=== PATIENT | female | born 1960 | race African-American/Black ===

== ENCOUNTER 2016-04-27 21:54 | Emergency (ER) | payer MEDICAID, OTHER ==
[~2016-04-27] VITALS: Ht 157.5 cm; Wt 112.0 kg
[~2016-04-27 21:54] MED LIST: AMIT10 PO; BACL20TA PO; FURO20TA PO; HYDR-3534 PO; PROT40TA PO; XANA0.5T PO
[2016-04-27 21:55] VITALS: BP 177/87; PULSE 62; RESP 16; TEMP 97.4; O2SAT 99
[2016-04-27] MEDS ORDERED: PROT40TA PO (23:52)
[2016-04-27 23:53] VITALS: BP 154/70; PULSE 65; RESP 16; O2SAT 100
--- NOTE | 2016-04-28 00:07 | PD ---
HPI Chief Complaint: Dizziness Time Seen by Provider: 23:53 Travel History International Travel<30 days: No Contact w/Intl Traveler<30days: No Traveled to known affect area: No History of Present Illness HPI 56 years old female complains of lightheadedness, dizziness, and shortness of breath. Patient states that she hasn't given with her on the phone this evening. Patient started feeling dizzy lightheadedness short of breath and blood pressure was elevated. Patient states that she has history of vertigo. Patient denies any visual change. Patient denies any neck pain. Patient denies any chest pain. Patient denies any coughing congestion. Patient denies abdominal pain. Patient states that she had nausea with the dizziness. Patient denies any focal weakness or numbness of extremity. Patient denies any history hypertension. Patient has history of anxiety, GERD, bone cancer to left leg 47 years ago status post surgery, ulcer colitis, uterine fibroids and migraine. PFSH Past Medical History Anxiety: Yes Heart Rhythm Problems: No Cancer: Yes (BONE CANCER LEFT LEG 47 YEARS AGO) Cardiac Catheterization: No Cardiovascular Problems: No High Cholesterol: No Congestive Heart Failure: No Diabetes: No Diminished Hearing: No Endocrine: No Gastrointestinal Disorders: Yes (ULCERATIVE COLITIS ; GASTRIC ULCER) GERD: Yes Genitourinary: Yes (FREQ URINATION) Hepatitis: No Hiatal Hernia: No Immune Disorder: No Medical other: Yes (VERTIGO; MIGRANES) Musculoskeletal: No Neurologic: No Psychiatric: No Reproductive: Yes (FIBROIDS) Respiratory: No Migraines: Yes Thyroid Disease: No Menopausal: Yes : 1 Para: 1 Past Surgical History Body Medical Devices: NONE Section: Yes (X1) Coronary Artery Bypass Graft: No Gynecologic Surgery: Yes ( X 1, HYSTERECTOMY) Hysterectomy: Yes (TOTAL) Pacemaker: No Other Surgery: Yes Social History Alcohol Use: No Tobacco Use: No Substance Use: No Allergies-Medications (Allergen,Severity, Reaction): Coded Allergies: Sulfa (Verified Allergy, Mild, ABD PAIN AND DIARRHEA, 04/27/16) Reported Meds & Prescriptions Reported Meds & Active Scripts Active Reported Protonix (Pantoprazole Sodium) 40 Mg Tab 40 Mg PO DAILY Review of Systems General / Constitutional: No: Fever Eyes: No: Visual changes HENT: Positive: Lightheadedness, No: Headaches Cardiovascular: No: Chest Pain or Discomfort Respiratory: Positive: Shortness of Breath Gastrointestinal: Positive: Nausea, No: Abdominal Pain Genitourinary: No: Dysuria Musculoskeletal: No: Pain Skin: No Rash Neurologic: No: Weakness Psychiatric: No: Depression Endocrine: No: Polydipsia Hematologic/Lymphatic: No: Easy Bruising Physical Exam Narrative GENERAL: Well-nourished, well-developed patient. SKIN: Warm and dry. HEAD: Normocephalic. EYES: No scleral icterus. No injection or drainage. NECK: Supple, trachea midline. No JVD or lymphadenopathy. CARDIOVASCULAR: Regular rate and rhythm without murmurs, gallops, or rubs. RESPIRATORY: Breath sounds equal bilaterally. No accessory muscle use. GASTROINTESTINAL: Abdomen soft, non-tender, nondistended. MUSCULOSKELETAL: No cyanosis, or edema. BACK: Nontender without obvious deformity. No CVA tenderness. Neurologic exam normal. Data Data Last Documented VS Vital Signs Date Time Temp Pulse Resp B/P Pulse Ox O2 Delivery O2 Flow Rate FiO2 04/27/16 23:54 64 04/27/16 23:53 16 154/70 100 Room Air 04/27/16 21:55 97.4 Orders Meclizine (Antivert) (04/28/16 00:15) Ondansetron Inj (Zofran Inj) (04/28/16 00:15) Complete Blood Count With Diff (04/28/16 00:02) Basic Metabolic Panel (Bmp) (04/28/16 00:02) Urinalysis - C+S If Indicated (04/28/16 00:02) Iv Access Insert/Monitor (04/28/16 00:02) Ecg Monitoring (04/28/16 00:02) Oximetry (04/28/16 00:02) Chest, Single Ap (04/28/16 00:05) Labs Laboratory Tests Test 04/28/16 04/28/16 00:20 01:12 White Blood Count 8.5 TH/MM3 Red Blood Count 3.71 MIL/MM3 Hemoglobin 10.9 GM/DL Hematocrit 32.7 % Mean Corpuscular Volume 88.2 FL Mean Corpuscular Hemoglobin 29.5 PG Mean Corpuscular Hemoglobin 33.4 % Concent Red Cell Distribution Width 14.5 % Platelet Count 267 TH/MM3 Mean Platelet Volume 8.2 FL Neutrophils (%) (Auto) 37.7 % Lymphocytes (%) (Auto) 52.8 % Monocytes (%) (Auto) 7.0 % Eosinophils (%) (Auto) 1.5 % Basophils (%) (Auto) 1.0 % Neutrophils # (Auto) 3.2 TH/MM3 Lymphocytes # (Auto) 4.5 TH/MM3 Monocytes # (Auto) 0.6 TH/MM3 Eosinophils # (Auto) 0.1 TH/MM3 Basophils # (Auto) 0.1 TH/MM3 CBC Comment DIFF FINAL Differential Comment Sodium Level 141 MEQ/L Potassium Level 3.5 MEQ/L Chloride Level 106 MEQ/L Carbon Dioxide Level 28.6 MEQ/L Anion Gap 6 MEQ/L Blood Urea Nitrogen 6 MG/DL Creatinine 0.70 MG/DL Estimat Glomerular Filtration 105 ML/MIN Rate Random Glucose 92 MG/DL Calcium Level 9.1 MG/DL Urine Color LIGHT-YELLOW Urine Turbidity CLEAR Urine pH 6.0 Urine Specific [place] 1.006 Urine Protein NEG mg/dL Urine Glucose (UA) NEG mg/dL Urine Ketones NEG mg/dL Urine Occult Blood NEG Urine Nitrite NEG Urine Bilirubin NEG Urine Urobilinogen LESS THAN 2.0 MG/DL Urine Leukocyte Esterase SMALL Urine RBC 1 /hpf Urine WBC LESS THAN 1 /hpf Urine Squamous Epithelial <1 /hpf Cells Urine Bacteria RARE /hpf Microscopic Urinalysis Comment CULT NOT INDICATED MDM Medical Decision Making Medical Screen Exam Complete: Yes Emergency Medical Condition: Yes Interpretation(s) 1:51 AM. Last Impressions Chest X-Ray 04/28/16 0005 Signed Impressions: Service Date/Time: Thursday, April 28, 2016 00:45 - CONCLUSION: Normal examination. Thierry Calloway Jr., MD 1:51 AM. CBC with hemoglobin 10.9 hematocrit 32.7. BMP within normal limit. UA negative. Differential Diagnosis Differential diagnosis including acute vertigo, new-onset hypertension, hypertensive emergency, hypertensive crisis, electrolyte abnormality. Narrative Course 56 years old female with dizziness, lightheadedness, shortness of breath and transient elevated blood pressure. History of vertigo. Meclizine 25 mg by mouth given. Zofran 4 mg IV given. Diagnosis Primary Impression: Acute onset of severe vertigo Patient Instructions: General Instructions Additional Instructions: Take medications as needed. Follow-up with personal physician. Return if worse. Med/Other Pt SpecificInfo: Prescription(s) given Scripts Ondansetron Odt (Zofran Odt)4 Mg Tab4 Mg SL Q6HR PRN (Nausea/Vomiting) #10 TAB Ref 0 Prov:Zachary Alejandro MD 04/28/16 Meclizine 25 Mg Tab25 Mg PO TID PRN (VERTIGO) #30 TAB Ref 0 Prov:Zachary Alejandro MD 04/28/16 Disposition: 01 DISCHARGE HOME Condition: Stable Zachary Alejandro MD Apr 28, 2016 00:07
[2016-04-28] MEDS ORDERED: MECLIZINE HCL 25 MG TAB PO ONE (00:15)
[2016-04-28] MEDS ORDERED: ONDANSETRON HCL 4 MG/2 ML VIAL IV PUSH ONE (00:15)
[2016-04-28 00:37] LABS: AUTOMATED NEUTROPHIL # 3.2 TH/MM3 (1.8-7.7); BASOPHIL # 0.1 TH/MM3 (0-0.2); EOSINOPHIL # 0.1 TH/MM3 (0-0.4); EOSINOPHIL % 1.5 % (0.0-4.0); HEMATOCRIT 32.7 % (35.0-46.0); HEMO FLAGS DIFF FINAL; LYMPH % 52.8 % (9.0-44.0); LYMPHOCYTE # 4.5 TH/MM3 (1.0-4.8); MEAN CELL VOLUME 88.2 FL (80.0-100.0); MEAN CORPUSCULAR HEMOGLOBIN 29.5 PG (27.0-34.0); MEAN CORPUSCULAR HGB CONC 33.4 % (32.0-36.0); NEUT % 37.7 % (16.0-70.0); PLATELET COUNT 267 TH/MM3 (150-450); RED BLOOD COUNT 3.71 MIL/MM3 (4.00-5.30); RED CELL DISTRIBUTION WIDTH 14.5 % (11.6-17.2); WHITE BLOOD COUNT 8.5 TH/MM3 (4.0-11.0)
[2016-04-28 01:01] LABS: BICARBONATE 28.6 MEQ/L (21.0-32.0); POTASSIUM 3.5 MEQ/L (3.5-5.1)
--- NOTE | 2016-04-28 01:12 | RADRPT ---
EXAM DATE/TIME: 04/28/2016 00:45 [facility] COMPARISON: CHEST SINGLE AP, May 31, 2015, 13:08. INDICATIONS : Shortness of breath and chest pain. MEDICAL HISTORY : None. SURGICAL HISTORY : None. ENCOUNTER: Initial ACUITY: 1 day PAIN SCORE: 2/10 LOCATION: chest FINDINGS: A single view of the chest demonstrates the lungs to be symmetrically aerated without evidence of mas s, infiltrate or effusion. The cardiomediastinal contours are unremarkable. Osseous structures are intact. CONCLUSION: Normal examination. Thierry Calloway Jr., MD on April 28, 2016 at 1:11 Board Certified Radiologist. This report was verified electronically.
[2016-04-28 01:34] LABS: BACTERIA, URINE RARE /hpf; BLOOD, URINE NEG (NEG); COMMENT (UR) CULT NOT INDICATED; CULTURE IF INDICATED CULT NOT INDICATED; GLUCOSE,URINE NEG (NEG); KETONE, URINE NEG (NEG); NITRITE,URINE NEG (NEG); SQUAMOUS EPITHELIAL CELL URINE <1 /hpf (0-5); URINE COLOR LIGHT-YELLOW (YELLW/STRAW)
[2016-04-28] MEDS ORDERED: ZOFR4TAB3 SL (01:57)
[2016-04-28] MEDS ORDERED: MECL-62 PO (01:57)
--- NOTE | 2016-04-29 11:06 | EKG ---
Date Performed: 04/27/2016 Time Performed: 23:55:32 PTAGE: 56 years EKG: SINUS BRADYCARDIA LOW QRS VOLTAGE IN PRECORDIAL LEADS BORDERLINE ECG INTERPRETATION BASED O N A DEFAULT AGE OF 40 YEARS NO PREVIOUS TRACING DOCTOR: Arnulfo Yap Interpretating Date/Time 04/29/2016 11:03:36
== END 2016-04-28 03:25 | disposition home or self-care (01) ==
LOC: NEPE 21:54
DX: R42 Dizziness and giddiness (principal); R06.02 Shortness of breath
CPT/HCPCS: 71010; 80048; 81001; 85025; 93005; 96374; 99285; J2405

== ENCOUNTER 2016-06-22 13:27 | Emergency (ER) | payer OTHER ==
[~2016-06-22] VITALS: Ht 157.5 cm; Wt 100.0 kg
[~2016-06-22 13:27] MED LIST changes: -AMIT10 PO; -BACL20TA PO; -FURO20TA PO; -HYDR-3534 PO; +MECL-62 PO; -XANA0.5T PO; +ZOFR4TAB3 SL
[2016-06-22 13:30] VITALS: BP 183/90; PULSE 89; RESP 18; TEMP 98.4; O2SAT 98
--- NOTE | 2016-06-22 13:35 | PD ---
Physical Exam Time Seen by Provider: 13:33 Narrative 56yo F sent by MD for elevated BP w/ Chest pain. Given a medication under her tongue at the office. Slight chest pain now. Also c/o of possible blood clot to R leg because its swollen and painful. Reports SOB. Patient seen in triage. Awaiting bed placement. VS reviewed. Data Data Last Documented VS Vital Signs Date Time Temp Pulse Resp B/P Pulse Ox O2 Delivery O2 Flow Rate FiO2 06/22/16 13:30 98.4 89 18 183/90 98 MDM Supervised Visit with MANUEL: Gemma Perez June 22, 2016 13:35
--- NOTE | 2016-06-22 14:09 | RADRPT ---
EXAM DATE/TIME: 06/22/2016 13:58 [facility] COMPARISON: CHEST SINGLE AP, April 28, 2016, 0:45. INDICATIONS : Wan blood pressure. MEDICAL HISTORY : Hypertension. Carcinoma, bone. SURGICAL HISTORY : Hysterectomy. section. ENCOUNTER: Initial ACUITY: 2 days PAIN SCORE: 2/10 LOCATION: Bilateral chest FINDINGS: PA and lateral views of the chest demonstrate the lungs to be symmetrically aerated without evidence of mass, infiltrate or effusion. The cardiomediastinal contours are unremarkable. Osseous structure s are intact. CONCLUSION: Normal examination. Melquiades Renee MD on June 22, 2016 at 14:07 Board Certified Radiologist. This report was verified electronically.
[2016-06-22 14:32] LABS: AUTOMATED NEUTROPHIL # 4.2 TH/MM3 (1.8-7.7); BASOPHIL # 0.1 TH/MM3 (0-0.2); BASOPHIL % 0.6 % (0.0-2.0); EOSINOPHIL # 0.1 TH/MM3 (0-0.4); EOSINOPHIL % 1.4 % (0.0-4.0); HEMATOCRIT 35.2 % (35.0-46.0); HEMO FLAGS DIFF FINAL; LYMPH % 39.6 % (9.0-44.0); LYMPHOCYTE # 3.2 TH/MM3 (1.0-4.8); MEAN CELL VOLUME 87.9 FL (80.0-100.0); MEAN CORPUSCULAR HEMOGLOBIN 29.5 PG (27.0-34.0); MEAN CORPUSCULAR HGB CONC 33.6 % (32.0-36.0); MONO % 7.1 % (0.0-8.0); NEUT % 51.3 % (16.0-70.0); PLATELET COUNT 293 TH/MM3 (150-450); RED CELL DISTRIBUTION WIDTH 13.8 % (11.6-17.2); WHITE BLOOD COUNT 8.2 TH/MM3 (4.0-11.0)
[2016-06-22 14:47] VITALS: BP 132/61; PULSE 87; RESP 18; O2SAT 98
[2016-06-22 14:56] LABS: ANION GAP 7 MEQ/L (5-15); BICARBONATE 28.5 MEQ/L (21.0-32.0); BLOOD UREA NITROGEN 10 MG/DL (7-18); CHLORIDE 107 MEQ/L (98-107); GLOMERULAR FILTRATION RATE 103 ML/MIN (>89); POTASSIUM 3.5 MEQ/L (3.5-5.1); SODIUM (NA) 142 MEQ/L (136-145)
[2016-06-22 15:00] LABS: CREATINE KINASE 383 U/L (26-192)
--- NOTE | 2016-06-22 15:07 | PD ---
HPI Chief Complaint: Cardiac Complaint Time Seen by Provider: 14:30 Travel History International Travel<30 days: No Contact w/Intl Traveler<30days: No Traveled to known affect area: No History of Present Illness HPI The patient was seen and examined in the presence of the nurse. This patient was sent here by the primary physician office to rule out DVT in her right leg. She says that she's had swelling in her right leg for about a month and does complain of some discomfort in it. No injury. Denies fever or prior history of DVT. She has history of left-sided BKA. She had a bit of chest pain yesterday in the sternal region. This morning had some as well but much improved. Symptoms severity is moderate. No alleviating factors. Duration of chest pain is 2 days and duration of right leg swelling one month PFSH Past Medical History Anxiety: Yes Heart Rhythm Problems: No Cancer: Yes (BONE CANCER LEFT LEG age 6) Cardiac Catheterization: No Cardiovascular Problems: No High Cholesterol: No Congestive Heart Failure: No Diabetes: No Diminished Hearing: No Endocrine: No Gastrointestinal Disorders: Yes (ULCERATIVE COLITIS ; GASTRIC ULCER) GERD: Yes Genitourinary: Yes (FREQ URINATION) Hepatitis: No Hiatal Hernia: No Immune Disorder: No Medical other: Yes (VERTIGO; MIGRANES) Musculoskeletal: No Neurologic: No Psychiatric: No Reproductive: Yes (FIBROIDS) Respiratory: No Migraines: Yes Thyroid Disease: No Tetanus Vaccination: < 5 Years Influenza Vaccination: No Menopausal: Yes : 1 Para: 1 Miscarriage: 0 : 0 Past Surgical History Body Medical Devices: NONE Section: Yes (X1) Coronary Artery Bypass Graft: No Gynecologic Surgery: Yes ( X 1, HYSTERECTOMY) Hysterectomy: Yes (TOTAL) Pacemaker: No Other Surgery: Yes Family History Family Myocardial Infarction: Yes Social History Alcohol Use: No Tobacco Use: No Substance Use: No Allergies-Medications (Allergen,Severity, Reaction): Coded Allergies: Sulfa (Verified Allergy, Mild, ABD PAIN AND DIARRHEA, 06/22/16) Reported Meds & Prescriptions Reported Meds & Active Scripts Active Zofran Odt (Ondansetron Odt) 4 Mg Tab 4 Mg SL Q6HR PRN Meclizine (Meclizine HCl) 25 Mg Tab 25 Mg PO TID PRN Reported Protonix (Pantoprazole Sodium) 40 Mg Tab 40 Mg PO DAILY Review of Systems General / Constitutional: No: Fever Eyes: No: Visual changes HENT: No: Headaches Cardiovascular: Positive: Chest Pain or Discomfort, Edema Respiratory: No: Shortness of Breath Gastrointestinal: No: Abdominal Pain Genitourinary: No: Dysuria Musculoskeletal: Positive: Myalgias, Edema, Pain Skin: No Rash Neurologic: No: Weakness Psychiatric: No: Depression Endocrine: No: Polydipsia Hematologic/Lymphatic: No: Easy Bruising Physical Exam Narrative GENERAL: Well-nourished, well-developed patient in no apparent distress. SKIN: Focused skin assessment reveals no rash and nodules. Skin is Warm and dry. HEAD: Atraumatic. Normocephalic. EYES: Pupils equal and round. No scleral icterus. No injection or drainage. ENT: No nasal bleeding or discharge. Mucous membranes pink and moist. NECK: Trachea midline. No JVD. CARDIOVASCULAR: Regular rate and rhythm. No murmur appreciated. RESPIRATORY: No accessory muscle use. Clear to auscultation. Breath sounds equal bilaterally. GASTROINTESTINAL: Abdomen soft, non-tender, nondistended. Hepatic and splenic margins not palpable. MUSCULOSKELETAL: Has a prosthesis and left BKA. Right leg shows minor edema from the knee down. No Tenderness or erythema or warmth. No clubbing. No cyanosis. No edema. NEUROLOGICAL: Awake and alert. No obvious cranial nerve deficits. Motor grossly within normal limits. Normal speech. PSYCHIATRIC: Appropriate mood and affect; insight and judgment normal. Data Data Last Documented VS Vital Signs Date Time Temp Pulse Resp B/P Pulse Ox O2 Delivery O2 Flow Rate FiO2 06/22/16 14:47 87 18 132/61 98 Room Air 06/22/16 13:30 98.4 Orders Electrocardiogram (06/22/16 ) Electrocardiogram (06/22/16 13:38) Complete Blood Count With Diff (06/22/16 13:38) Basic Metabolic Panel (Bmp) (06/22/16 13:38) Ckmb (Isoenzyme) Profile (06/22/16 13:38) Troponin I (06/22/16 13:38) Chest, Pa & Lat (06/22/16 13:38) CKMB (06/22/16 14:05) CKMB% (06/22/16 14:05) D-Dimer (06/22/16 15:03) Prothrombin Time / Inr (Pt) (06/22/16 15:03) Act Partial Throm Time (Ptt) (06/22/16 15:03) Oxycodone-Acetamin 5-325 Mg (Percocet (06/22/16 15:15) Labs Laboratory Tests Test 06/22/16 06/22/16 14:05 15:40 White Blood Count 8.2 TH/MM3 Red Blood Count 4.00 MIL/MM3 Hemoglobin 11.8 GM/DL Hematocrit 35.2 % Mean Corpuscular Volume 87.9 FL Mean Corpuscular Hemoglobin 29.5 PG Mean Corpuscular Hemoglobin 33.6 % Concent Red Cell Distribution Width 13.8 % Platelet Count 293 TH/MM3 Mean Platelet Volume 8.0 FL Neutrophils (%) (Auto) 51.3 % Lymphocytes (%) (Auto) 39.6 % Monocytes (%) (Auto) 7.1 % Eosinophils (%) (Auto) 1.4 % Basophils (%) (Auto) 0.6 % Neutrophils # (Auto) 4.2 TH/MM3 Lymphocytes # (Auto) 3.2 TH/MM3 Monocytes # (Auto) 0.6 TH/MM3 Eosinophils # (Auto) 0.1 TH/MM3 Basophils # (Auto) 0.1 TH/MM3 CBC Comment DIFF FINAL Differential Comment Sodium Level 142 MEQ/L Potassium Level 3.5 MEQ/L Chloride Level 107 MEQ/L Carbon Dioxide Level 28.5 MEQ/L Anion Gap 7 MEQ/L Blood Urea Nitrogen 10 MG/DL Creatinine 0.71 MG/DL Estimat Glomerular Filtration 103 ML/MIN Rate Random Glucose 104 MG/DL Calcium Level 9.3 MG/DL Total Creatine Kinase 383 U/L Creatine Kinase MB 2.2 NG/ML Creatine Kinase MB % 0.6 % Troponin I LESS THAN 0.02 NG/ML Prothrombin Time 10.9 SEC Prothromb Time International 1.0 RATIO Ratio Activated Partial 27.1 SEC Thromboplast Time D-Dimer Quantitative (PE/DVT) 0.43 MG/L [facility] Medical Decision Making Medical Screen Exam Complete: Yes Emergency Medical Condition: Yes Medical Record Reviewed: Yes Differential Diagnosis DVT, calf strain, ACS Narrative Course I have reviewed the patient's electronic medical record. I reviewed her nuclear stress test from one year ago which was normal IV placed I reviewed the EKG which shows sinus rhythm without ectopy or ST elevation I reviewed the chest x-ray shows no emergent findings Extended cardiac monitoring shows sinus rhythm without ectopy CBC is normal Metabolic profile is normal CK is normal Troponin is normal Coagulation studies are normal D-dimer is 0.43, ruling out PE in this low risk patient with low clinical suspicion Patient's chest discomfort is clearly chest wall and musculoskeletal in origin. It is readily reproducible with palpation. It will not require inpatient evaluation. She should follow-up with her primary care physician Diagnosis Primary Impression: Leg edema, right Additional Impressions: Leg pain, right Musculoskeletal chest pain Additional Instructions: Check and record blood pressure daily The patient was advised to follow up with their physician and return if they worsen. Med/Other Pt SpecificInfo: Other Disposition: 01 DISCHARGE HOME Condition: Stable Daniel Cowart MD June 22, 2016 15:07
[2016-06-22 15:12] LABS: CKMB 2.2 NG/ML (0.5-3.6)
[2016-06-22] MEDS ORDERED: oxyCODONE/ACETAMINOPHEN 5 MG/325 MG TAB PO ONE (15:15)
[2016-06-22 16:29] LABS: APTT (PATIENT) 27.1 SEC (24.3-30.1); PROTHROMBIN TIME - PATIENT 10.9 SEC (9.8-11.6)
--- NOTE | 2016-06-23 21:48 | EKG ---
Date Performed: 06/22/2016 Time Performed: 13:57:59 PTAGE: 56 years EKG: Sinus rhythm BORDERLINE LEFT AXIS DEVIATION MINIMAL VOLTAGE CRITERIA FOR LVH, CONSIDER NORMAL VARIANT BORDERLINE ECG PREVIOUS TRACING : 04/27/2016 23.55 Compared to prior tracing no significant change DOCTOR: Erwin Davis Interpretating Date/Time 06/23/2016 21:47:42
== END 2016-06-22 18:00 | disposition home or self-care (01) ==
LOC: NEPC 13:27
DX: R60.0 Localized edema (principal); M79.604 Pain in right leg; R07.89 Other chest pain
CPT/HCPCS: 71020; 80048; 82550; 82552; 84484; 85025; 85379; 85610; 85730; 93005

== ENCOUNTER 2017-03-23 14:46 | Emergency (ER) | payer OTHER, MEDICAID ==
[~2017-03-23] VITALS: Ht 157.5 cm; Wt 100.0 kg
[2017-03-23 14:49] VITALS: BP 137/87; PULSE 79; RESP 14; TEMP 97.8; O2SAT 98
[2017-03-23] MEDS ORDERED: VICT18IN SQ (17:23)
[2017-03-23] MEDS ORDERED: LIRA1INJ2 SQ (17:27)
[2017-03-23] MEDS ORDERED: HYDR-3288 PO (17:27)
[2017-03-23] MEDS ORDERED: AMLO5TAB2 PO (17:27)
[2017-03-23] MEDS ORDERED: TRAZ50TA12 PO (17:29)
[2017-03-23] MEDS ORDERED: ALPR0.5T3 PO (17:29)
[2017-03-23] MEDS ORDERED: DICY10 PO (17:53)
[2017-03-23] MEDS ORDERED: ZOFR4TAB3 SL (17:53)
--- NOTE | 2017-03-23 17:53 | PD ---
HPI Chief Complaint: Cold / Flu Symptoms Time Seen by Provider: 17:31 Travel History International Travel<30 days: No Contact w/Intl Traveler<30days: No Traveled to known affect area: No History of Present Illness HPI 57-year-old female complains of earache, sore throat, coughing, congestion, abdominal cramping, nausea vomiting diarrhea. Patient states that the symptoms started about a week ago. Patient states that the headache is mild intermittent. Patient states that the sore throat is persistent. Patient denies any chest pain or shortness of breath. Patient states that she has intermittent dry cough. Patient states that she has intermittent abdominal cramping with nausea vomiting and diarrhea. She denies any dysuria frequency. Patient denies any vaginal discharge or bleeding. Patient was started on Victoza recently for weight loss. PFSH Past Medical History Anxiety: Yes Depression: Yes Heart Rhythm Problems: No Cancer: Yes (BONE CANCER LEFT LEG age 6) Cardiac Catheterization: No Cardiovascular Problems: No High Cholesterol: No Congestive Heart Failure: No Diabetes: No Patient Takes Glucophage: No Diminished Hearing: No Endocrine: No Gastrointestinal Disorders: Yes (ULCERATIVE COLITIS ; GASTRIC ULCER) GERD: Yes Genitourinary: Yes (FREQ URINATION) Hepatitis: No Hiatal Hernia: No Hypertension: Yes Immune Disorder: No Medical other: Yes (VERTIGO; ) Musculoskeletal: No Neurologic: No Psychiatric: No Reproductive: Yes (FIBROIDS) Respiratory: No Immunizations Current: Yes Migraines: Yes Thyroid Disease: No Ulcer: Yes (GASTRIC ULCER ) Tetanus Vaccination: Unknown Influenza Vaccination: No ?: Not Menopausal: Yes : 1 Para: 1 Miscarriage: 0 : 0 Past Surgical History Body Medical Devices: NONE Section: Yes (X1) Coronary Artery Bypass Graft: No Gynecologic Surgery: Yes ( X 1, HYSTERECTOMY) Hysterectomy: Yes (TOTAL) Pacemaker: No Other Surgery: Yes Family History Family Myocardial Infarction: Yes Social History Alcohol Use: No Tobacco Use: No Substance Use: No Allergies-Medications (Allergen,Severity, Reaction): Coded Allergies: Sulfa (Sulfonamide Antibiotics) (Unverified Allergy, Mild, ABD PAIN AND DIARRHEA, 03/23/17) Reported Meds & Prescriptions Reported Meds & Active Scripts Active Meclizine (Meclizine HCl) 25 Mg Tab 25 Mg PO TID PRN Reported Alprazolam 0.5 Mg Tab 0.5 Mg PO Q8H PRN Trazodone (Trazodone HCl) 50 Mg Tab 50 Mg PO HS Amlodipine (Amlodipine Besylate) 5 Mg Tab 5 Mg PO DAILY [place] (Hydrocodone-Acetaminophen) 7.5-325 mg Tab 1 Tab PO Q4H PRN Saxenda Inj (Liraglutide Inj) 18 Mg/3 Ml Pen 3 Mg SQ DAILY Victoza Inj (Liraglutide Inj) 18 Mg/3 Ml Pen 1.8 Mg SQ DAILY Victoza Inj (Liraglutide Inj) 18 Mg/3 Ml Pen 1.2 Mg SQ DAILY to take it for 15 days then start the SZXENDA Protonix (Pantoprazole Sodium) 40 Mg Tab 40 Mg PO DAILY Review of Systems General / Constitutional: No: Fever Eyes: No: Visual changes HENT: Positive: Sore Throat, Earache, No: Headaches Cardiovascular: No: Chest Pain or Discomfort Respiratory: Positive: Cough, No: Shortness of Breath Gastrointestinal: Positive: Nausea, Vomiting, Diarrhea, Abdominal Pain Genitourinary: No: Dysuria Musculoskeletal: No: Pain Skin: No Rash Neurologic: No: Weakness Psychiatric: No: Depression Endocrine: No: Polydipsia Hematologic/Lymphatic: No: Easy Bruising Physical Exam Narrative GENERAL: Well-nourished, well-developed patient. SKIN: Focused skin assessment warm/dry. HEAD: Normocephalic. EYES: No scleral icterus. No injection or drainage. TM: Clear. Throat: Mild erythematous. NECK: Supple, trachea midline. No JVD. Patient has mild anterior cervical lymphadenopathy. No meningismus CARDIOVASCULAR: Regular rate and rhythm without murmurs, gallops, or rubs. RESPIRATORY: Breath sounds equal bilaterally. No accessory muscle use. GASTROINTESTINAL: Abdomen soft, nondistended. Patient has mild diffuse tenderness over the abdomen. No rebound tenderness. No mass. MUSCULOSKELETAL: No cyanosis, or edema. BACK: Nontender without obvious deformity. No CVA tenderness. Data Data Last Documented VS Vital Signs Date Time Temp Pulse Resp B/P (MAP) Pulse Ox O2 Delivery O2 Flow Rate FiO2 03/23/17 14:49 97.8 79 14 137/87 (104) 98 Room Air Orders Orders Influenzae A/B Antigen (03/23/17 15:06) [facility] Medical Decision Making Medical Screen Exam Complete: Yes Emergency Medical Condition: Yes Differential Diagnosis Differential diagnosis including gastroenteritis, otitis media, pharyngitis, bronchitis, pneumonia, electrolyte abnormality, dehydration. Narrative Course 57-year-old female with BX sore throat cough and congestion abdominal pain nausea vomiting diarrhea. Diagnosis Primary Impression: Viral syndrome Patient Instructions: General Instructions Additional Instructions: Zofran as needed for nausea vomiting. [id number] Imodium as needed for diarrhea. Bentyl as needed for abdominal cramping. Tylenol for fever. Follow- up with personal physician. Return if persistent problem or worse. Med/Other Pt SpecificInfo: Prescription(s) given Scripts Dicyclomine (Bentyl) 10 Mg Cap 10 MG PO TID Y for Bowel Management, #15 CAP 0 Refills Prov: Zachary Alejandro MD 03/23/17 Ondansetron Odt (Zofran Odt) 4 Mg Tab 4 MG SL Q6HR Y for Nausea/Vomiting, #10 TAB 0 Refills Prov: Zachary Alejandro MD 03/23/17 Disposition: 01 DISCHARGE HOME Condition: Stable Zachary Alejandro MD Mar 23, 2017 17:53
== END 2017-03-23 18:04 | disposition home or self-care (01) ==
LOC: NEPD 14:46
DX: B34.9 Viral infection, unspecified (principal); R07.0 Pain in throat; R05 Cough; R10.9 Unspecified abdominal pain; R11.2 Nausea with vomiting, unspecified; R19.7 Diarrhea, unspecified; I10 Essential (primary) hypertension; K21.9 Gastro-esophageal reflux disease without esophagitis; F41.8 Other specified anxiety disorders; Z87.19 Personal history of other diseases of the digestive system
CPT/HCPCS: 87804; 99283